=== PATIENT | male | born 1990 | race Caucasian/White ===

== ENCOUNTER 2018-01-14 11:13 | Emergency (ER) | payer SELFPAY | END 2018-01-14 11:40 | disposition home or self-care (01) | LOC: NAV ERS 11:13 | DX: A05.9 Bacterial foodborne intoxication, unspecified (principal); F17.210 Nicotine dependence, cigarettes, uncomplicated; Z71.6 Tobacco abuse counseling | CPT/HCPCS: 99406 ==